=== PATIENT | male | born 2000 | race Caucasian/White ===

== ENCOUNTER 2022-07-01 16:14 | Emergency (ER) | payer OTHER, MEDICAID ==
[~2022-07-01] VITALS: Ht 190.5 cm; Wt 95.5 kg
[2022-07-01] MEDS ORDERED: IBUP-1114 PO (16:24)
[2022-07-01 18:45] VITALS: BP 127/69
== END 2022-07-01 18:49 | disposition home or self-care (01) ==
LOC: M ED 16:14
DX: S93.401A Sprain of unspecified ligament of right ankle, initial encounter (principal); S83.91XA Sprain of unspecified site of right knee, initial encounter; W50.0XXA Accidental hit or strike by another person, initial encounter; Y93.61 Activity, american tackle football

== ENCOUNTER 2022-11-07 15:00 | Emergency (ER) | payer MEDICAID ==
[~2022-11-07] VITALS: Ht 190.5 cm; Wt 91.0 kg
[~2022-11-07 15:00] MED LIST: IBUP-1114 PO
[2022-11-07 15:02] VITALS: BP 129/60; TEMP 97.7; O2SAT 97
[2022-11-07] MEDS ORDERED: KETO10TAB PO (16:59)
== END 2022-11-07 17:19 | disposition home or self-care (01) ==
LOC: M ED 15:00
DX: M23.92 Unspecified internal derangement of left knee (principal); Y93.61 Activity, american tackle football; Z79.1 Long term (current) use of non-steroidal anti-inflammatories (NSAID)

== ENCOUNTER → 2022-12-21 | Outpatient (CLI) | payer MEDICAID, OTHER ==
[~2022-12-21] MED LIST changes: +KETO10TAB PO
== END ==
LOC: M PLAIMG 15:15
PROVIDERS: ATTEND Physician Assistant
DX: M23.332 Other meniscus derangements, other medial meniscus, left knee (principal)

== ENCOUNTER 2023-08-18 05:58 | Day surgery (SDC) | payer OTHER ==
[~2023-08-18] VITALS: Ht 190.5 cm; Wt 95.7 kg
[2023-08-18] MEDS ORDERED: MIDAZOLAM INJ 2MG/2ML VIAL As Ordered ONE (06:47)
[2023-08-18] MEDS ORDERED: propofoL 200 MG/20 ML VIAL As Ordered ONE (06:48)
[2023-08-18] MEDS ORDERED: LIDOCAINE 2% 100MG/5ML SDV (FOR ANES.) As Ordered ONE (06:48)
[2023-08-18] MEDS ORDERED: fentaNYL 100 MCG/2 ML INJECTION As Ordered ONE (06:48)
[2023-08-18] MEDS ORDERED: ROCURONIUM BROMIDE 50MG/5ML VIAL As Ordered ONE (06:48)
[2023-08-18] MEDS: LR 1,000 ML IV SCH (06:57)
[2023-08-18] MEDS ORDERED: oxyCODONE 5MG TAB PO PRN ×2 (07:10→09:55)
[2023-08-18] MEDS ORDERED: fentaNYL 100 MCG/2 ML INJECTION IV PRN ×2 (07:10→09:55)
[2023-08-18] MEDS ORDERED: ONDANSETRON 4MG 2ML VIAL IV PRN (07:10)
[2023-08-18] MEDS ORDERED: MORPHINE 2 MG/ML 1ML VIAL IV PRN ×2 (07:10→09:55)
[2023-08-18] MEDS ORDERED: dexAMETHasone 10MG/1ML VIAL PRES.FREE PN ONE (07:15)
[2023-08-18] MEDS ORDERED: LIDOCAINE 1% SDV 5ML VIAL PN ONE (07:15)
[2023-08-18] MEDS ORDERED: ROPIvacaine 0.5% 30ML VIAL PN ONE (07:15)
[2023-08-18] MEDS: SCOPOLAMINE 1MG TRANSDERMAL PATCH TOP ONE (07:23)
[2023-08-18] MEDS: fentaNYL 100 MCG/2 ML INJECTION IV PRN (07:30)
[2023-08-18] MEDS: ceFAZolin SOD 2 GM in IV 1 EA IV ONE (07:30)
[2023-08-18] MEDS: MIDAZOLAM INJ 2MG/2ML VIAL IV PRN (07:31)
[2023-08-18] MEDS ORDERED: TRANEXAMIC ACID 100 MG/ML 10ML VIAL As Ordered ONE (07:42)
[2023-08-18] MEDS ORDERED: ACETAMINOPHEN 1000MG 100ML IV BAG As Ordered ONE (08:00)
[2023-08-18] MEDS: EPINEPHrine INJ 1 MG/ML 1ML AMP PN ONE (08:40)
[2023-08-18] MEDS: EPINEPHrine INJ 1 MG/ML 1ML AMP As Ordered ONE (08:40)
[2023-08-18] MEDS ORDERED: SUGAMMADEX SODIUM 500 MG/5 ML VIAL (BRIDION) As Ordered ONE (09:10)
[2023-08-18] MEDS ORDERED: KETOROLAC 60MG 2ML VIAL As Ordered ONE (09:14)
[2023-08-18] MEDS ORDERED: ONDANSETRON 4MG 2ML VIAL As Ordered ONE (09:14)
[2023-08-18] MEDS: ONDANSETRON 4MG 2ML VIAL IV PRN (10:00)
[2023-08-18] MEDS ORDERED: CELE1CAP4 PO (10:03)
[2023-08-18] MEDS ORDERED: GABA-282 PO (10:03)
[2023-08-18] MEDS ORDERED: OXYC-517 PO (10:03)
[2023-08-18] MEDS ORDERED: ACET-897 PO (10:03)
[2023-08-18 11:25] VITALS: BP 110/72; TEMP 97.5; O2SAT 100
== END 2023-08-18 11:25 | disposition home or self-care (01) ==
LOC: M SDC 05:58
PROVIDERS: ATTEND Student in an Organized Health Care Education/Training Program
DX: M23.612 Other spontaneous disruption of anterior cruciate ligament of left knee (principal); M23.352 Other meniscus derangements, posterior horn of lateral meniscus, left knee; F12.10 Cannabis abuse, uncomplicated
CPT/HCPCS: 29877; 64447; J0131; J0171; J0690; J1100; J1885; J2250; J2405; J3010

== ENCOUNTER → 2024-08-30 | Outpatient (CLI) | payer OTHER ==
[~2024-08-30] MED LIST changes: +ACET-897 PO; +CELE1CAP4 PO; +GABA-1172 PO; +OXYC-517 PO
== END ==
LOC: M SOG 06:50
PROVIDERS: ATTEND Neuromusculoskeletal Medicine, Sports Medicine
DX: M25.562 Pain in left knee (principal)

== ENCOUNTER → 2024-09-12 | Outpatient (CLI) | payer OTHER ==
[2024-09-12 15:51] LABS: BASO # 0.0 10^3/uL (0.0-0.2); BASO % 0.4 % (0.0-1.0); EOS # 0.1 10^3/uL (0.0-0.5); EOS % 2.0 % (0.0-3.0); LYMPH # 1.1 10^3/uL (1.5-5.0); LYMPH % 21.5 % (24.0-44.0); MONO # 0.5 10^3/uL (0.0-0.8); MONO % 10.3 % (2.0-8.0); NEUTROPHILS # 3.2 10^3/uL (1.5-8.5); NEUTROPHILS % 65.6 % (36.0-66.0); PLATELET COUNT, AUTOMATED 226 10^3/uL (150-450)
[2024-09-12 15:55] LABS: CALCIUM LEVEL 9.3 MG/DL (8.5-10.1); CARBON DIOXIDE LEVEL 28 MMOL/L (20-31); CHLORIDE LEVEL 105 MMOL/L (98-107); CREATININE FOR GFR 0.99 MG/DL (0.70-1.30); GLOMERULAR FILTRATION RATE > 90.0 (>60); POTASSIUM SERUM 4.3 MMOL/L (3.5-5.1); SODIUM LEVEL 144 MMOL/L (136-145)
[2024-09-12 16:23] LABS: HIV 1&2 SCREEN NEGATIVE (NEGATIVE)
[2024-09-12 16:31] LABS: HEPATITIS C VIRUS ABY INDEX 0.06 INDEX (<0.8)
== END ==
LOC: M PLALAB 10:51
PROVIDERS: ATTEND Family Medicine
DX: R00.2 Palpitations (principal); Z11.9 Encounter for screening for infectious and parasitic diseases, unspecified

== ENCOUNTER → 2024-09-28 | Outpatient (CLI) | payer OTHER | LOC: M RAD 14:30 | PROVIDERS: ATTEND Family Medicine | DX: M25.562 Pain in left knee (principal); M25.362 Other instability, left knee ==